=== PATIENT | male | born 1995 | race Caucasian/White ===

== ENCOUNTER 2024-07-11 10:47 | Emergency (ER) | payer OTHER, SELFPAY ==
--- NOTE | 2024-07-11 11:01 | ED.GENMED ---
ED Provider Triage
<AARON Abdi - Last Filed: 07/11/24 11:11>
-
Patient seen by provider in Triage?: Seen in Triage
Attestation: A medical screening examination has been initiated by a qualified medical provider. Based on the assessment performed at this time, it has been determined that an emergent medical condition may exist and the patient has been informed
that further medical evaluation and possible additional diagnostic testing may be needed.
HPI:
29 yr old male presented for evaluation. pt had syncopal episode yesterday . He was sitting on a bench at his [employer] office for about an hour. He then bent over and then felt low back pain. He tried to stand up and felt like he was going to
pass out and then witnessed syncopal episode. EMS were called to seen 'checked me out.' He did not want to go to the ED yesterday. He felt fine this am but when he got to work felt like he was having trouble focusing and felt 'weird .'Because
never got evaluated yesterday for the syncope he came here today. He was worried that he was going to pass out again though he had no lightheadedness/dizziness. He has no symptoms now .
GENERAL: Alert , in no apparent distress
EYE: No visual abnormalities.
NECK: Trachea midline
ENT: No visible abnormalities.
LUNGS: No acute respiratory distress
CV:Regular rate and rhythm
NEUROLOGICAL: Alert and oriented
SKIN: Skin intact. No visible changes.
MUSCULOSKELETAL: Moving extremities normally
PSYCH: Normal and appropriate interaction.
This is a medical evaluation conducted in person to initiate diagnostic evaluation and provide initial therapeutics. Please see further documentation by the treating clinician.
History of Present Illness
<AARON Abdi - Last Filed: 07/11/24 11:11>
General
Chief Complaint: Fainting Sensation
Time Seen by Provider: 07/11/24 11:29
<Gumaro Rodriguez PA-C - Last Filed: 07/11/24 13:35>
General
Source: patient
History of Present Illness
History of Present Illness:
29-year-old male with no significant past medical history presenting to the emergency department for evaluation after he had a syncopal event yesterday stating he was at the ED that and when he attempted his dog for the vet to exam and felt a pain
in his back, sat back down in the chair and when he attempts to get back up again states he did this quite quickly and caused him to feel lightheaded, sat back down and syncopized while in the chair. Patient states that EMS was contacted and
evaluated him at the [place] office, recommended he come to the ER but patient states he was feeling much better and ultimately decided he wanted to go home. Patient felt well throughout the night last night and into this morning but started
to 'feel off' while at work this morning so decided to come to the ER to be evaluated. Patient states at time of my evaluation he is asymptomatic and feels well. Currently denying any back pain.
Past History
<Gumaro Rodriguez PA-C - Last Filed: 07/11/24 13:35>
Past History
ED Past Medical History: None
ED Past Surgical History: None
Social History
Tobacco: Non-smoker
Alcohol: Occasional
Drug: None
Personal: Single
Living: with family
Employment: Employed
Review of Systems
<LUZMA Sands Last Filed: 07/11/24 13:35>
Review of Systems
All Other Systems: ROS reviewed and negative except as documented in HPI and ROS
Phy Exam
<LUZMA Sands Last Filed: 07/11/24 13:35>
Physical Exam
Physical Exam:
GENERAL: Alert , in no apparent distress
EYE: conjunctiva clear
NECK: Supple
ENT: o/p clr, mmm.
CARDIAC: Regular rate and rhythm
LUNGS: Clear breath sounds bilaterally, no acute respiratory distress, no wheezes/rales/rhonchi
NEUROLOGICAL: Alert and oriented
SKIN: Warm and dry, skin intact.
MUSCULOSKELETAL: well perfused.
PSYCH: Normal and appropriate interaction.
Scores
<Gumaro Rodriguez PA-C - Last Filed: 07/11/24 13:35>
Heart Failure Risk
Heart Failure Risk Score: Not Applicable
Heart Score for Chest Pain Patients
STEMI patient?: Not applicable
Withdrawal Assessment of Alcohol
Withdrawal Assessment Completed?: Not applicable
Course
<AARON Abdi - Last Filed: 07/11/24 11:11>
Orders/Labs/Results
Orders:
Orders
07/11/24 11:12
Electrocardiogram (*1) Stat
Reason for Study: Abdominal Pain
EKG- Treatment ONCE
07/11/24 11:16
Complete Blood Count/With Diff Urgent
Comprehensive Metabolic Panel Urgent
07/11/24 11:29
Orthostatic VS- Treatment ONCE
Abnormal Lab Results
07/11/24
11:16
Absolute Lymphs (auto) 1.1 L 10^3/uL
(1.2-3.4)
BUN 23 H mg/dl
(9-20)
Glucose 105 H mg/dl
(70-99)
Albumin 5.2 H g/dl
(3.5-5.0)
07/11/24 11:16
07/11/24 11:16
Vital Signs
Initial and Last Documented VS:
Initial Vital Signs
Temp Pulse Resp BP Pulse Ox
98.3 F 81 18 133/90 97
07/11/24 11:06 07/11/24 11:06 07/11/24 11:06 07/11/24 11:06 07/11/24 11:06
Last Documented Vital Signs
Temp Pulse Resp BP Pulse Ox
98.3 F 81 18 133/90 97
07/11/24 11:06 07/11/24 11:06 07/11/24 11:06 07/11/24 11:06 07/11/24 11:06
<Gumaro Rodriguez PA-C - Last Filed: 07/11/24 13:35>
Orders/Labs/Results
Orders:
Orders
07/11/24 11:12
Electrocardiogram (*1) Stat
Reason for Study: Abdominal Pain
EKG- Treatment ONCE
07/11/24 11:16
Complete Blood Count/With Diff Urgent
Comprehensive Metabolic Panel Urgent
07/11/24 11:29
Orthostatic VS- Treatment ONCE
Abnormal Lab Results
07/11/24
11:16
Absolute Lymphs (auto) 1.1 L 10^3/uL
(1.2-3.4)
BUN 23 H mg/dl
(9-20)
Glucose 105 H mg/dl
(70-99)
Albumin 5.2 H g/dl
(3.5-5.0)
07/11/24 11:16
07/11/24 11:16
Vital Signs
Initial and Last Documented VS:
Initial Vital Signs
Temp Pulse Resp BP Pulse Ox
98.3 F 81 18 133/90 97
07/11/24 11:06 07/11/24 11:06 07/11/24 11:06 07/11/24 11:06 07/11/24 11:06
Last Documented Vital Signs
Temp Pulse Resp BP Pulse Ox
98.3 F 81 18 133/90 97
07/11/24 11:06 07/11/24 11:06 07/11/24 11:06 07/11/24 11:06 07/11/24 11:06
<Gumaro Rodriguez PA-C - Last Filed: 07/11/24 13:35>
MDM/Problems Addressed
Differential Diagnosis Includes:
Vagal events secondary to pain, orthostasis, less concern for cardiogenic syncope, less concern for electrolyte derangement
MDM/Problems Addressed:
29-year-old male presenting the ER for evaluation after he syncopized yesterday following a pain to his back while attempting to lift his dog. Back pain currently resolved. Patient states he felt better after syncopized and but this morning
started to feel off again. Currently states asymptomatic. EKG is without ectopy or ischemia. Labs initiated in triage are largely unremarkable. There is some mild prerenal azotemia. Patient currently tolerating p.o. fluid. Will check
orthostatics. As long as patient remains asymptomatic will be stable for discharge home. I have less concern for cardiogenic syncope but did discuss with patient if he continues to have any syncopal episodes he may need further evaluation by
cardiology.
<Gumaro Rodriguez PA-C - Last Filed: 07/11/24 13:35>
*Pulse Oximetry
Patient hypoxic: no
*EKG
Heart Rate: 67
Rate: normal
Rhythm: sinus
[place]: normal axis
Ischemia: no ischemia
*Critical Care Note
Total Time (30-74mins, 75-104mins- exclusive of procedures): Not Applicable
<Gumaro Rodriguez PA-C - Last Filed: 07/11/24 13:35>
Patient Management
Escalation/DeEscalation of care consider admission/obs:
Patient continues to feel well. Orthostatics unremarkable. Stable for discharge home.
ED Attending Note
<AARON Abdi - Last Filed: 07/11/24 11:11>
-
Portions of this chart may have been created with voice recognition software.� Occasional wrong word or��sound alike� substitutions may have occurred due to the inherent limitations of voice recognition software.
Discharge Plan
Departure
Patient Disposition: Home (Routine Discharge)
Date of Disposition: 07/11/24
Time of Disposition: 12:26
Patient with high blood pressure during this ER visit?: No
Discharge Problem:
Vasovagal syncope
Instructions: Syncope (Fainting) (DC)
Referrals:
Evaristo Rivera IV, DO [Family Provider] -
Interventions
Interventions:
*Risk Screen - Suicide Last Done: 07/11/24 11:06
*General Assessment Last Done: 07/11/24 11:06
*Neglect/Abuse Screening Last Done: 07/11/24 11:06
ED- Fall Risk Assessment Last Done: 07/11/24 12:05
*ED COVID-19 Vaccine History Last Done: 07/11/24 12:05
*Nursing Disposition Last Done: 07/11/24 12:27
ED- Cardiac Assessment Last Done: 07/11/24 12:05
ED- Neurological Assessment Last Done: 07/11/24 12:05
Discharge Date and Time
Discharge Date/Time: 07/11/24 12:27
Print Language: SLOVENIAN
[2024-07-11 11:06] VITALS: BP 133/90
[2024-07-11 11:25] LABS: % Basophils 0.8 % (0-2); % Eosinophils 1.1 % (0-6); % Immature Granulocytes 0.4 % (0-0.5); % Lymphocytes 21.4 % (20.5-51.1); % Neutrophils 67.3 % (42.2-75.2); Absolute Eosinophils 0.1 10^3/uL (0-0.7); Absolute Lymphocytes 1.1 10^3/uL (1.2-3.4); Absolute Monocytes 0.5 10^3/uL (0.1-0.6); Absolute Neutrophils 3.5 10^3/uL (1.4-6.5); Hematocrit 45.5 % (39.0-52.0); Hemoglobin 15.7 g/dL (13.0-18.0); Mean Corp Hgb Conc. 34.5 g/dL (33.0-37.0); Mean Platelet Volume 9.5 fL (7.4-10.4); Nucleated Red Blood Cells % 0 % (-); Platelet Count 202 10^3/uL (130-400); Red Blood Cell Count 5.23 10^6/uL (4.70-6.10); Red Cell Dist. Width 12.1 % (11.5-14.5); White Blood Cell Count 5.2 10^3/uL (4.8-10.8)
[2024-07-11 11:37] LABS: ALT (SGPT) 35 U/L (0-50); AST (SGOT) 27 U/L (17-59); Albumin 5.2 g/dl (3.5-5.0); Alkaline Phosphatase 49 U/L (38-126); Blood Urea Nitrogen 23 mg/dl (9-20); Calcium 9.9 mg/dl (8.4-10.2); Carbon Dioxide 28 mmol/L (22-30); Chloride 100 mmol/L (98-107); Glucose 105 mg/dl (70-99); Potassium 4.6 mmol/L (3.5-5.1); Sodium 139 mmol/L (135-145); Total Bilirubin 0.5 mg/dl (0.2-1.3); Total Protein 7.7 g/dl (6.3-8.2); eGFR > 60.00
[2024-07-11 11:57] VITALS: BP 128/77; BP 134/80; PULSE 90; PULSE 92; PULSE 95
== END 2024-07-11 12:27 | disposition home or self-care (01) ==
LOC: EMR 10:47
PROVIDERS: Nurse Practitioner; EMERGENCY PHYSICIAN Emergency Medicine; FAMILY PHYSICIAN Family Medicine
DX: R55 Syncope and collapse (principal)
CPT/HCPCS: 99284; 80053; 85025; 93005